=== PATIENT | male | born 1985 | race Caucasian/White ===

== ENCOUNTER 2023-01-03 15:25 | Inpatient (IN) | payer BC ==
[~2023-01-03] VITALS: Ht 190.5 cm; Wt 113.9 kg
--- NOTE | 2023-01-03 15:34 | NUR ---
PATIENT CAME WITH COMPLAINTS OF ABNORMAL TACHYCARDIA AND NUMNESS ON BOTH HANDS.ALERT AND ORIENTED.PATIENT CONNECTED TO ELECTRIC MOTOR TESTER AND PULSE OXYMETER.BREATHING ON ROOM AIR WITH OUT ANY DISTRESS.ALL SAFTEY PRECAUTIONS AT BED SIDE.AWAITING MD FOR EVAL.
--- NOTE | 2023-01-03 15:35 | NUR ---
IV INSERTED ON RT AC NO 18G ,BLOOD COLLECTED AND SEND TO LAB.
--- NOTE | 2023-01-03 15:35 | NUR ---
DR BARNES AT BED SIDE FOR EVAL
[2023-01-03] MEDS ORDERED: DILTIAZEM HCL 25 MG IV ONE (15:40)
[2023-01-03] MEDS ORDERED: ASPIRIN 325 MG TABLET ONE (15:40)
--- NOTE | 2023-01-03 15:43 | NUR ---
DR. EDUARDO SPEAKING WITH DR. BARNES.
[2023-01-03] MEDS ORDERED: ONDANSETRON HCL/PF 4 MG/2 ML VIAL ONE ×2 (15:46→15:59)
[2023-01-03] MEDS ORDERED: AMIODARONE 150 MG/3 ML VIAL IV ONE (15:48)
--- NOTE | 2023-01-03 15:49 | NUR ---
MOVE SHEET SUBMITTED.
[2023-01-03 15:53] LABS: BASOPHILS # (AUTO) 0.1 K/uL (0.0-0.2); BASOPHILS % (AUTO) 0.9 % (0.0-2.0); EOSINOPHILS % (AUTO) 1.5 % (0.0-6.0); HEMATOCRIT 45 % (39-51); HEMOGLOBIN 15.3 g/dL (13.5-17.5); LYMPHOCYTES % (AUTO) 29.8 % (20.0-44.0); MEAN CORPUSCULAR HGB CONC 34 g/dl (31.0-36.0); MEAN CORPUSCULAR VOLUME 94 fL (80-96); MONOCYTES # (AUTO) 0.7 K/uL (0.1-1.30); MONOCYTES % (AUTO) 10.7 % (2.0-12.0); NEUTROPHILS # (AUTO) 3.9 K/uL (1.8-8.9); NEUTROPHILS % (AUTO) 57.1 % (43.0-81.0); PLATELET COUNT (AUTO) 297 K/uL (150-450); RED BLOOD CELL COUNT(AUTO) 4.73 MIL/uL (4.5-6.0); WHITE BLOOD COUNT (AUTO) 6.9 K/uL (4.3-11.0)
[2023-01-03] MEDS ORDERED: ASPIRIN 325 MG TABLET PO ONE (16:00)
[2023-01-03] MEDS ORDERED: IV NS 0.9% 500 ML BAG IV ONE (16:00)
[2023-01-03] MEDS ORDERED: ENOXAPARIN SODIUM 100 MG/ML DISP.SYRIN SQ ONE ×2 (16:00→17:05)
[2023-01-03] MEDS ORDERED: ONDANSETRON HCL/PF 4 MG/2 ML VIAL IVP ONE (16:00)
[2023-01-03] MEDS ORDERED: AMIODARONE 150 MG in IV D5W 100 ML IV ONE (16:00)
[2023-01-03] MEDS ORDERED: DILTIAZEM HCL 50 MG IV IV ONE (16:00)
[2023-01-03] MEDS ORDERED: ONDANSETRON HCL/PF 4 MG/2 ML VIAL IV ONE (16:00)
[2023-01-03 16:11] LABS: CALCIUM, SERUM 10.2 mg/dL (8.5-10.1); CARBON DIOXIDE 19 mmol/L (21-32); CHLORIDE 100 mmol/L (98-107); CREATININE 0.9 mg/dL (0.6-1.3); GLUCOSE 101 mg/dL (74-106); POTASSIUM 3.3 mmol/L (3.5-5.1); SODIUM SERUM 139 mmol/L (136-145); UREA NITROGEN, BLOOD 10 mg/dL (7-18)
[2023-01-03] MEDS: AMIODARONE 450 MG in IV D5W 250 ML IV ONE (16:13)
[2023-01-03 16:18] LABS: ALANINE AMINOTRANSFERASE 108 U/L (12-78); ALBUMIN 4.7 g/dL (3.4-5.0); ALKALINE PHOSPHATASE 71 U/L (46-116); ASPARTATE AMINOTRANSFERASE 69 U/L (15-37); BILIRUBIN,DIRECT 0.2 mg/dL (0.0-0.2); BILIRUBIN,TOTAL 0.6 mg/dL (0.2-1.0)
[2023-01-03] MEDS ORDERED: CETI-90 PO (16:27)
[2023-01-03] MEDS ORDERED: MULT-754 PO (16:27)
[2023-01-03] MEDS ORDERED: PROPOFOL 20 ML IV ONE ×2 (16:27→16:39)
[2023-01-03] MEDS ORDERED: VENL150C2 PO (16:27)
[2023-01-03] MEDS ORDERED: DUPI300S SQ (16:27)
[2023-01-03] MEDS ORDERED: PROPOFOL 200 MG/20 ML VIAL IV ONE (16:30)
--- NOTE | 2023-01-03 16:30 | NUR ---
RT AT BED SIDE.
--- NOTE | 2023-01-03 16:30 | NUR ---
CRASH ACRT AT BED SIDE OF THE PATIENT.
--- NOTE | 2023-01-03 16:31 | NUR ---
DEFIB PADS ARE ATTCHED TO PATENT CHEST.
--- NOTE | 2023-01-03 16:33 | NUR ---
PER DR BARNES ORDER INJ PROPOFOL 50MG GIVEN TO PATIENT.
--- NOTE | 2023-01-03 16:34 | NUR ---
PER DR BARNES ORDER INJ PROPOFOL 25 MG GIVEN TO PATIENT.
--- NOTE | 2023-01-03 16:36 | NUR ---
PER DR BARNES ORDER INJ PROPOFOL 25 MG GIVEN TO PATIENT.
--- NOTE | 2023-01-03 16:37 | NUR ---
PER DR BARNES ORDER INJ PROPOFOL 25 MG GIVEN TO PATIENT.
--- NOTE | 2023-01-03 16:37 | NUR ---
AGAIN PER DR BARNES ORDER INJ PROPOFOL 25 MG GIVEN TO PATIENT.
[2023-01-03] MEDS ORDERED: PROPOFOL 0 ML IV ONE (16:38)
--- NOTE | 2023-01-03 16:38 | NUR ---
PER DR BARNES ORDER INJ PROPOFOL 25 MG GIVEN TO PATIENT.
--- NOTE | 2023-01-03 16:39 | NUR ---
PER DR BARNES ORDER INJ PROPOFOL 25 MG GIVEN TO PATIENT.
--- NOTE | 2023-01-03 16:40 | NUR ---
200 [facility] SYNCHRONISED CARDIOVERSION DONE PER DR BARNES ORDER.
--- NOTE | 2023-01-03 16:49 | NUR ---
CALLED NURSING SUP REGARDING PT BED
--- NOTE | 2023-01-03 16:50 | NUR ---
ROOM 262
[2023-01-03] MEDS ORDERED: DEXT5TAB15 PO (16:57)
--- NOTE | 2023-01-03 17:06 | NUR ---
ECHO AT BEDSIDE
--- NOTE | 2023-01-03 17:06 | NUR ---
install technician at bedside
[2023-01-03] MEDS ORDERED: METOCLOPRAMIDE HCL 10 MG/2 ML VIAL ONE (18:06)
--- NOTE | 2023-01-03 18:10 | NUR ---
reglan 10mg ivp, per dr sam order. given
[2023-01-03] MEDS ORDERED: LORAZEPAM INJ 2 MG/ML VIAL ONE (18:16)
[2023-01-03] MEDS ORDERED: METOCLOPRAMIDE HCL 10 MG/2 ML VIAL IV ONE (18:30)
[2023-01-03] MEDS ORDERED: LORAZEPAM INJ 2 MG/ML VIAL IV ONE (18:30)
--- NOTE | 2023-01-03 19:30 | NUR ---
ROBINSON REEVES NP AT BEDSIDE.
[2023-01-03] MEDS ORDERED: Thiamine 100 MG in IV D5W 50 ML IV SCH (20:00)
[2023-01-03] MEDS ORDERED: MAG HYDROX/AL HYDROX/SIMETH 30 ML UDC PO PRN (20:00)
[2023-01-03] MEDS ORDERED: ENOXAPARIN SODIUM 40 MG/0.4 ML DISP.SYRIN SQ SCH (20:00)
[2023-01-03] MEDS ORDERED: ONDANSETRON HCL/PF 4 MG/2 ML VIAL IVP PRN (20:00)
[2023-01-03] MEDS ORDERED: ACETAMINOPHEN 325 MG TABLET PO PRN (20:00)
[2023-01-03] MEDS ORDERED: Z GUARD REMEDY 4 OZ OINT TP PRN (20:00)
[2023-01-03] MEDS ORDERED: ZOLPIDEM TARTRATE 5 MG TABLET PO PRN (20:00)
[2023-01-03] MEDS ORDERED: LORAZEPAM INJ 2 MG/ML VIAL IV PRN (20:00)
[2023-01-03] MEDS ORDERED: MAGNESIUM HYDROXIDE 30 ML UDC PO PRN (20:00)
--- NOTE | 2023-01-03 20:26 | NUR ---
REPORT GIVEN TO ERIBERTO SAAB (ICU).
--- NOTE | 2023-01-03 20:35 | NUR ---
PT TRANSFERRED TO ROOM 262 VIA ACLS PROTOCOL.
[2023-01-03 20:45] VITALS: BP 134/88; TEMP 99.2; O2SAT 98
--- NOTE | 2023-01-03 20:50 | NUR ---
PATIENT ADMITTED FROM ER VIA GURNEY ACCOMPANIED BY 2 ER PERSONNELS. PT AWAKE A/O X4 WITH GF AT BEDSIDE. PT ON 02 VIA NC AT 6 LPM. TOLERATING WELL. ATTACHED TO FIELD LOGISTICS COORDINATOR SHOWING AFIB WITH RVR WITH A HR OF 142. IV ACCESS IS ON RT AC AND LT FA G#18 INFUSING AMIODARONE TITRATED ORDERED. STARTED ON NS AT 100 ML/HR. PT IS CONTINENT AND IS ABLE TO USE URINAL. SKIN CHECK PERFORMED, INTACT. BELONGINGS CHECKED AND FORM PLACED ON CHART. SAFETY MEASURES IN PLACE. HOB ELEVATED. WILL CONTINUE TO MONITOR AND WILL CONTINUE PLAN OF CARE.
[2023-01-03 21:00] VITALS: BP 154/77; O2SAT 99
[2023-01-03] MEDS: IV NS 0.9% 1,000 ML IV PRN (21:09)
[2023-01-03] MEDS: AMIODARONE 450 MG in IV D5W 241 ML IV PRN ×2 (21:54→23:53)
[2023-01-03 22:00] VITALS: BP 157/115; O2SAT 99
[2023-01-03 23:00] VITALS: BP 133/92; O2SAT 99
[2023-01-04] VITALS (24 sets, daily range): BP systolic 110–147; BP diastolic 66–99; TEMP 98–98.7; O2SAT 97–100
[2023-01-04 04:47] LABS: BASOPHILS % (AUTO) 0.8 % (0.0-2.0); EOSINOPHILS % (AUTO) 2.7 % (0.0-6.0); HEMATOCRIT 42 % (39-51); HEMOGLOBIN 14.5 g/dL (13.5-17.5); LYMPHOCYTES # (AUTO) 0.8 K/uL (0.8-4.8); LYMPHOCYTES % (AUTO) 17.8 % (20.0-44.0); MEAN CORPUSCULAR HGB CONC 35 g/dl (31.0-36.0); MEAN CORPUSCULAR VOLUME 93 fL (80-96); MONOCYTES # (AUTO) 0.5 K/uL (0.1-1.30); NEUTROPHILS % (AUTO) 66.7 % (43.0-81.0); PLATELET COUNT (AUTO) 241 K/uL (150-450); WHITE BLOOD COUNT (AUTO) 4.5 K/uL (4.3-11.0)
[2023-01-04 05:19] LABS: ALANINE AMINOTRANSFERASE 87 U/L (12-78); ALBUMIN 3.7 g/dL (3.4-5.0); ALKALINE PHOSPHATASE 65 U/L (46-116); ASPARTATE AMINOTRANSFERASE 50 U/L (15-37); BILIRUBIN,TOTAL 0.7 mg/dL (0.2-1.0); CALCIUM, SERUM 9.3 mg/dL (8.5-10.1); CARBON DIOXIDE 27 mmol/L (21-32); CHLORIDE 102 mmol/L (98-107); CREATININE 0.6 mg/dL (0.6-1.3); GLUCOSE 140 mg/dL (74-106); PHOSPHORUS 3.4 mg/dL (2.5-4.9); POTASSIUM 3.5 mmol/L (3.5-5.1); SODIUM SERUM 139 mmol/L (136-145); TOTAL PROTEIN, SERUM 6.8 g/dL (6.4-8.2); UREA NITROGEN, BLOOD 7 mg/dL (7-18)
[2023-01-04 05:20] LABS: CHOLESTEROL 210 mg/dL (<200); HDL CHOLESTEROL 93 mg/dL (40-60); LDL 89 mg/dL (0-99); TRIGLYCERIDES 134 mg/dL (30-150)
[2023-01-04] MEDS: IV NS 0.9% 1,000 ML IV PRN ×2 (06:45→15:10)
--- NOTE | 2023-01-04 07:21 | NUR ---
Hand over report given to Silvia WEI for continuity of care.
[2023-01-04] MEDS ORDERED: PANTOPRAZOLE 40 MG TABLET.DR PO SCH (07:30)
[2023-01-04] MEDS: POTASSIUM CHLORIDE 20 MEQ TAB.PRT.SR PO SCH ×3 (08:24→11:34)
--- NOTE | 2023-01-04 09:00 | NUR ---
ICU/RN PT IS RESTING V/S STABLE.AFEBRILE.NO PAIN REPORTED AT THIS TIME. HR 90-110 BPM A-FIB.ON AMIODARONE DRIP .USE URINAL WITH GOOD URINE OUTPUT. EAT 100% FROM HIS MEAL TRAY. DUE MEDS ARE GIVEN ORDERED.LABS REVIEW.MD AWARE.CONTINUE MONITORING.
[2023-01-04] MEDS: VENLAFAXINE XR 150 MG CAP.SR.24H PO SCH ×2 (12:00→13:05)
--- NOTE | 2023-01-04 13:13 | NUR ---
ICU/RN PT IS TAKING DAILY EFFEXOR BRAND NAME ONLY PO 300 MG.REFUSED TO TAKE VENLAFAXINE ( GENERIC ).
[2023-01-04] MEDS: AMIODARONE 450 MG in IV D5W 241 ML IV PRN (15:09)
--- NOTE | 2023-01-04 16:30 | NUR ---
ICU/RN CARDIOVERSION DONE BY DR EDUARDO.PT CONVERTED TO SINUS RHYTHM. FAMILY AT BEDSIDE.CONTINUE MONITORING. EKG ORDERED.
--- NOTE | 2023-01-04 17:10 | NUR ---
ICU/RN OK D/C PATIENT HOME PER DR EDUARDO. V/S STABLE,AFEBRILE.NO PAIN REPORTED THIS TIME. HR 70 NORMAL SINUS RHYTHM.
--- NOTE | 2023-01-04 17:50 | NUR ---
ICU/RN D/C HOME IN STABLE CONDITION .PT LEFT WITH FAMILY ON PRIVATE CAR.
[2023-01-04] MEDS ORDERED: PROPOFOL 200 MG/20 ML VIAL IV ONE (18:02)
[2023-01-04] MEDS ORDERED: THIAMINE HCL 100 MG TABLET PO SCH (20:00)
== END 2023-01-04 18:03 | disposition home or self-care (01) | DRG 310 ==
LOC: ER 15:25 → ICU 19:28
PROVIDERS: ADMIT Nurse Practitioner Acute Care; ATTEND Internal Medicine
PROC: 5A2204Z Restoration of Cardiac Rhythm, Single (ICD-10-PCS; principal; 2023-01-03)
DX: I48.91 Unspecified atrial fibrillation (principal); F32.A Depression, unspecified; R74.01 Elevation of levels of liver transaminase levels; E87.6 Hypokalemia; R79.89 Other specified abnormal findings of blood chemistry; K29.70 Gastritis, unspecified, without bleeding
CPT/HCPCS: 36415; 71045-TC; 76700-TC; 80048-TC; 80053-TC; 80061-TC; 80076-TC; 83735-TC; 84100-TC; 84484-TC; 85025-TC; 85730-TC; 87081-TC; 93307-TC; A4223; G0378; J0282; J1650; J2060; J2405; J2704; J2765; J3411; J3490; J7030; J7040; J7060